=== PATIENT | female | born 1985 | race Two or more races ===

== ENCOUNTER 2023-04-20 11:26 | Emergency (ER) | payer SELFPAY ==
[~2023-04-20] VITALS: Ht 160 cm; Wt 86.3 kg
[2023-04-20 13:03] LABS: Urine Bacteria FEW /hpf (None Seen); Urine Blood Negative /uL (Negative); Urine Hyaline Cast FEW /lpf (0 - 2); Urine Specific Gravity 1.013 (1.001-1.035); Urine WBC 214 /hpf (0 - 5)
[2023-04-20 13:40] VITALS: BP 102/61
== END 2023-04-20 13:42 | disposition home or self-care (01) ==
LOC: EDBD 11:26 → ER 11:26
DX: O26.893 Other specified pregnancy related conditions, third trimester (principal); V49.9XXA Car occupant (driver) (passenger) injured in unspecified traffic accident, initial encounter; Y93.89 Activity, other specified; Y92.89 Other specified places as the place of occurrence of the external cause; Y99.8 Other external cause status; Z3A.31 31 weeks gestation of pregnancy; Z98.890 Other specified postprocedural states
CPT/HCPCS: 76805; 81001